=== PATIENT | female | born 1930 | race Caucasian/White ===

== ENCOUNTER 2017-06-06 11:13 | Inpatient (IN) | payer MEDICARE ==
[2017-06-06 11:13] VITALS: BMI 30.2
--- NOTE | 2017-06-06 12:42 | ED PDOC ---
HPI: Trauma/Fall - HPI Time Seen by Provider: 06/06/17 11:34 Chief Complaint (Nursing): Trauma Chief Complaint (Provider): fall History Per: Patient, Family (daughter) History/Exam Limitations: no limitations Additional Complaint(s): Jaelyn Villalta is an 86 year old female, with a previous medical history of hypertension and dementia, who presents to the ED by her daughter for evaluation after sustaining a fall this morning. Patient reports falling down after attempting to get off her chair this morning and denies any pain, headache , loss of consciousness, neck pain, nausea or vomiting. She states to recalling everything that happened. PMD Dr. Jean Past Medical History Reviewed: Historical Data, Nursing Documentation, Vital Signs Vital Signs: Last Vital Signs Temp 98.8 F 06/06/17 11:14 Pulse 70 06/06/17 11:14 Resp 20 06/06/17 11:14 BP 141/65 06/06/17 11:14 Pulse Ox 94 L 06/06/17 11:14 - Medical History PMH: Anemia (post hip surgery), Hypothyroidism Denies: Arthritis, Atrial Fibrillation, Cardia Arrhythmia, CHF, COPD, HTN, Hypercholesterolemia, Mitral Valve Prolapse, Peripheral Edema, Chronic Kidney Disease, Rheumatoid Arthritis - Surgical History Surgical History: No Surg Hx - Family History Family History: States: No Known Family Hx - Home Medications Home Medications: Ambulatory Orders Medication Instructions Recorded Bisoprolol [Zebeta] 5 mg PO DAILY 06/06/17 Donepezil [Aricept] 5 mg PO BID 06/06/17 Levothyroxine [Synthroid] 50 mcg PO DAILY 06/06/17 Multivitamin [Multi-Vitamin Daily] 1 tab PO DAILY 06/06/17 hydroCHLOROthiazide [Hydrodiuril] 25 mg PO DAILY 06/06/17 - Allergies Allergies/Adverse Reactions: Allergies Allergy/AdvReac Type Severity Reaction Status Date / Time No Known Allergies Allergy Verified 11/24/14 18:39 Review of Systems ROS Statement: Except As Marked, All Systems Reviewed And Found Negative Gastrointestinal: Negative for: Nausea, Vomiting Neurological: Negative for: Altered Mental Status, Headache, Dizziness Physical Exam - Reviewed Nursing Documentation Reviewed: Yes Vital Signs Reviewed: Yes - Physical Exam Appears: Positive for: Well, Non-toxic, No Acute Distress Head Exam: Positive for: ATRAUMATIC, NORMAL INSPECTION, NORMOCEPHALIC Skin: Positive for: Normal Color, Warm, Dry Eye Exam: Positive for: EOMI, Normal appearance, PERRL ENT: Positive for: Normal ENT Inspection Neck: Positive for: Normal, Painless ROM, Supple Cardiovascular/Chest: Positive for: Regular Rate, Rhythm, Chest Non Tender Respiratory: Positive for: CNT, Normal Breath Sounds Gastrointestinal/Abdominal: Positive for: Normal Exam, Bowel Sounds, Soft. Negative for: Tenderness Back: Positive for: Normal Inspection, Other (sacral ulcer stage 2) Extremity: Positive for: Normal ROM. Negative for: Tenderness, Deformity, Swelling Neurologic/Psych: Positive for: Alert, Oriented. Negative for: Motor/Sensory Deficits - Laboratory Results Result Diagrams: 06/06/17 12:40 06/06/17 12:40 - ECG ECG: Positive for: Interpreted By Me, Viewed By Me ECG Rhythm: Positive for: Normal QRS, Normal ST Segment, Sinus Rhythm. Negative for: ST/T Changes Rate: 68 O2 Sat by Pulse Oximetry: 94 (RA) Pulse Ox Interpretation: Abnormal Medical Decision Making Medical Decision Making: Initial Impression: fall possible syncope r/o head injury Initial Plan: * x-ray pelvis * ct head w/o contrast * EKG * labs * troponin I * reevaluation 14:08 X-ray pelvis FINDINGS: BONES: Pelvic Bones: Intact pelvic ring. No acute fractures. Hips: Degenerative changes both hips. Satisfactory position and alignment of orthopedic hardware proximal right femur incompletely visualize. JOINTS: Sacroiliac Joints: Unremarkable. Pubic Symphysis: Unremarkable. OTHER FINDINGS: Scoliosis, secondary degenerative change at multiple levels. IMPRESSION: No acute findings related to/accounting for the clinical presentation. 14:17 CT head FINDINGS: HEMORRHAGE: No intracranial hemorrhage. BRAIN: Mild diffuse cerebral atrophy is identified as well as moderate chronic microangiopathy throughout the cerebrum. Posterior fossa contents appear grossly nonfocal with the exception of vascular calcifications in the bilateral distal vertebral artery segments. The brainstem is unremarkable. No suspicious extra-axial collection. No mass effect. Bilateral atherosclerotic changes seen involving the internal carotid arteries at the cavernous segments. VENTRICLES: Unremarkable. No hydrocephalus. CALVARIUM: Unremarkable. PARANASAL SINUSES: Right maxillary sinusitis incidentally noted including a cyst or polyp. MASTOID AIR CELLS: Unremarkable as visualized. No inflammatory changes. OTHER FINDINGS: None. IMPRESSION: Age related neuro degenerative changes are identified without definitive acute intracranial findings by standard CT criteria. Follow-up CT or MRI are available if clinically warranted. . Scribe Attestation: Documented by Zeny Olson, acting as a scribe for Cesar Carrillo MD. Provider Scribe Attestation: All medical record entries made by the Scribe were at my direction and personally dictated by me. I have reviewed the chart and agree that the record accurately reflects my personal performance of the history, physical exam, medical decision making, and the department course for this patient. I have also personally directed, reviewed, and agree with the discharge instructions and disposition Disposition - Clinical Impression Clinical Impression: Acute renal failure, Fall - Patient ED Disposition Is Patient to be Admitted: Yes Discussed With : Rangel Dorman Doctor Will See Patient In The: ED Counseled Patient/Family Regarding: Studies Performed, Diagnosis - Disposition Disposition Time: 15:40 Condition: FAIR - Pt Status Changed To: Hospital Disposition Of: Observation - POA Present On Arrival: Falls Or Trauma, Pressure Ulcer (sacral)
[2017-06-06 12:45] LABS: BASO % 0.3 % (0.0-2.0); EOS % 0.1 % (0.0-4.0); HEMATOCRIT 29.8 % (34.0-47.0); LYMPH # 0.8 K/uL (1.0-4.3); LYMPH % 7.2 % (20.0-40.0); MEAN CELL VOLUME 77.8 fl (81.0-99.0); MEAN CORPUSCULAR HEMOGLOBIN 24.7 pg (27.0-31.0); MEAN CORPUSCULAR HGB CONC 31.7 g/dL (33.0-37.0); MEAN PLATELET VOLUME 6.4 fl (7.2-11.7); MONO # 1.1 K/uL (0.0-0.8); MONO % 9.5 % (0.0-10.0); NEUT # 9.5 K/uL (1.8-7.0); NEUT % 82.9 % (50.0-75.0); PLATELET COUNT 425 K/uL (130-400); RED CELL DISTRIBUTION WIDTH 17.1 % (11.5-14.5); WHITE BLOOD COUNT 11.4 K/uL (4.8-10.8)
[2017-06-06 12:56] LABS: CALCIUM 9.4 mg/dL (8.4-10.2); POTASSIUM 3.1 MMOL/L (3.6-5.0)
[2017-06-06] MEDS ORDERED: Potassium Chloride 20 mEq ER Tab PO ONE ×2 (13:05→13:12)
[2017-06-06] MEDS ORDERED: Sodium Chloride 0.9% 500 ML IV STA (13:05)
[2017-06-06 13:13] LABS: BASOPHIL 1 % (0-2); NEUTROPHIL 79 % (42-75); TOTAL CELLS COUNTED 100
--- NOTE | 2017-06-06 14:10 | RAD ---
PROCEDURE: Radiographs of the pelvis. HISTORY: fall COMPARISON: Preoperative examination 11/19/2014 FINDINGS: BONES: Pelvic Bones: Intact pelvic ring. No acute fractures. Hips: Degenerative changes both hips. Satisfactory position and alignment of orthopedic hardware proximal right femur incompletely visualize. JOINTS: Sacroiliac Joints: Unremarkable. Pubic Symphysis: Unremarkable. OTHER FINDINGS: Scoliosis, secondary degenerative change at multiple levels. IMPRESSION: No acute findings related to/accounting for the clinical presentation.
--- NOTE | 2017-06-06 14:18 | CT ---
PROCEDURE: CT HEAD WITHOUT CONTRAST. HISTORY: syncope COMPARISON: None available. TECHNIQUE: Axial computed tomography images were obtained through the head/brain without intravenous contrast. Radiation dose: Total exam DLP = 1206 mGy-cm. This CT exam was performed using one or more of the following dose reduction techniques: Automated exposure control, adjustment of the mA and/or kV according to patient size, and/or use of iterative reconstruction technique. FINDINGS: HEMORRHAGE: No intracranial hemorrhage. BRAIN: Mild diffuse cerebral atrophy is identified as well as moderate chronic microangiopathy throughout the cerebrum. Posterior fossa contents appear grossly nonfocal with the exception of vascular calcifications in the bilateral distal vertebral artery segments. The brainstem is unremarkable. No suspicious extra-axial collection. No mass effect. Bilateral atherosclerotic changes seen involving the internal carotid arteries at the cavernous segments. VENTRICLES: Unremarkable. No hydrocephalus. CALVARIUM: Unremarkable. PARANASAL SINUSES: Right maxillary sinusitis incidentally noted including a cyst or polyp. MASTOID AIR CELLS: Unremarkable as visualized. No inflammatory changes. OTHER FINDINGS: None. IMPRESSION: Age related neuro degenerative changes are identified without definitive acute intracranial findings by standard CT criteria. Follow-up CT or MRI are available if clinically warranted.
--- NOTE | 2017-06-06 16:34 | CP.PCM.HP ---
History of Present Illness - History of Present Illness History of Present Illness: 86 yo female with history HTN, Dementia and Hypothyroidism brought by family claiming she fell down this morning when her walker slipped. The patient claimed she fell forward to her right side but did not get injured. She denied passing out. Daughter in law felt patient has been deteriorating this past month , physically and mentally. Present on Admission - Present on Admission Any Indicators Present on Admission: No History of DVT/PE: No History of Uncontrolled Diabetes: No Urinary Catheter: No Decubitus Ulcer Present: No Review of Systems - Review of Systems Systems not reviewed;Unavailable: Dementia Past Patient History - Infectious Disease Hx of Infectious Diseases: None - Tetanus Immunizations Tetanus Immunization: Unknown - Past Medical History & Family History Past Medical History?: Yes - Past Social History Smoking Status: Never Smoked Alcohol: None Home Situation {Lives}: Alone - CARDIAC Hx Hypertension: Yes Hx Peripheral Edema: Yes - PULMONARY Hx Chronic Obstructive Pulmonary Disease (COPD): No - NEUROLOGICAL HX Cerebrovascular Accident: No Hx Dementia: Yes - HEENT Hx HEENT Problems: No - RENAL Hx Chronic Kidney Disease: No - ENDOCRINE/METABOLIC Hx Hypothyroidism: Yes - HEMATOLOGICAL/ONCOLOGICAL Hx Anemia: Yes - INTEGUMENTARY Hx Dermatological Problems: No - MUSCULOSKELETAL/RHEUMATOLOGICAL Hx Arthritis: No Hx Fractures: Yes (right hip 3 yrs ago) Hx Rheumatoid Arthritis: No - GASTROINTESTINAL Hx Gastrointestinal Disorders: No - GENITOURINARY/GYNECOLOGICAL Hx Genitourinary Disorders: No - PSYCHIATRIC Hx Substance Use: No - SURGICAL HISTORY Hx Surgeries: Yes Hx Open Reduction Internal Fixation: Yes (11/20/2014 right hip) Other/Comment: h/o fall at home 11/19/2014, 11/20/2014 right hip. intramedullary gamma nail (Dr. Mauro) - ANESTHESIA Hx Anesthesia: Yes Hx Anesthesia Reactions: No Hx Malignant Hyperthermia: No Meds Allergies/Adverse Reactions: Allergies Allergy/AdvReac Type Severity Reaction Status Date / Time No Known Allergies Allergy Verified 11/24/14 18:39 Physical Exam - Constitutional Appears: No Acute Distress - Head Exam Head Exam: ATRAUMATIC - Eye Exam Eye Exam: absent: Scleral icterus - ENT Exam ENT Exam: Mucous Membranes Moist - Neck Exam Neck exam: Negative for: Meningismus - Respiratory Exam Respiratory Exam: Rales (more on the right lower lung field). absent: Wheezes, Respiratory Distress - Cardiovascular Exam Cardiovascular Exam: REGULAR RHYTHM, +S1, +S2 - GI/Abdominal Exam GI & Abdominal Exam: Soft. absent: Tenderness - Rectal Exam Rectal Exam: Deferred - Extremities Exam Extremities exam: Positive for: pedal edema (2+ pedal edema, bilateral). Negative for: calf tenderness - Back Exam Back exam: absent: NORMAL INSPECTION (stage 2 decubitus ulcer), tenderness - Neurological Exam Neurological exam: Alert - Psychiatric Exam Psychiatric exam: Flat Affect - Skin Skin Exam: Dry, Pallor Results - Vital Signs Recent Vital Signs: Last Vital Signs Temp 98.8 F 06/06/17 11:14 Pulse 70 06/06/17 11:14 Resp 20 06/06/17 11:14 BP 141/65 06/06/17 11:14 Pulse Ox 94 L 06/06/17 14:26 - Labs Result Diagrams: 06/06/17 12:40 06/06/17 12:40 Labs: Laboratory Results - last 24 hr 06/06/17 06/06/17 06/06/17 12:40 12:40 14:44 WBC 11.4 H RBC 3.83 Hgb 9.5 L Hct 29.8 L MCV 77.8 L MCH 24.7 L MCHC 31.7 L RDW 17.1 H Plt Count 425 H MPV 6.4 L Neut % (Auto) 82.9 H Lymph % (Auto) 7.2 L [place] % (Auto) 9.5 Eos % (Auto) 0.1 Baso % (Auto) 0.3 Neut # 9.5 H Lymph # 0.8 L [place] # 1.1 H Eos # 0.0 Baso # 0.0 Neutrophils % (Manual) 79 H Lymphocytes % (Manual) 9 L Monocytes % (Manual) 11 H Basophils % (Manual) 1 Platelet Estimate Slightly increased H Hypochromasia (manual) Slight Anisocytosis (manual) Slight Microcytosis (manual) Slight Sodium 137 Potassium 3.1 L Chloride 99 Carbon Dioxide 29 Anion Gap 12 BUN 47 H Creatinine 1.9 H Est GFR ( Amer) 30 Est GFR (Non-Af Amer) 25 Random Glucose 127 H Calcium 9.4 Troponin I < 0.0120 Assessment & Plan (1) Acute renal failure Status: Acute Comment: place on observation in telemetry. acute deterioration of renal function probably secondary to dehydration. continue IV hydration with NSS 80cc /hr. urinalysis. repeat BMP in am (2) HTN (hypertension) Status: Acute Comment: BP stable. continue Zebeta 5mg PO daily (3) Dementia Status: Acute Comment: continue Aricept 5mg PO BID (4) Hypothyroidism Status: Acute Comment: TSH in am. continue Levothyroxine 50mcg PO daily (5) Decubitus ulcer Status: Acute Comment: refer for management to wound nurse (6) Peripheral edema Status: Acute Comment: Lasix 40mg PO daily. ECHO (7) DVT prophylaxis Status: Acute Comment: Heparin 5000 units SC q 12hrs
[2017-06-06 17:31] LABS: RBC URINE 2 /hpf (0-3); URINE BACTERIA RARE (<OCC); URINE BILIRUBIN NEGATIVE (NEGATIVE); URINE BLOOD NEGATIVE (NEGATIVE); URINE COLOR YELLOW (YELLOW); URINE GLUCOSE (UA) NEG (Normal); URINE KETONE NEGATIVE (NEGATIVE); URINE LEUKOCYTE ESTERASE SMALL Leu/uL (Negative); URINE PROTEIN NEGATIVE (NEGATIVE); URINE UROBILINOGEN 0.2-1.0 mg/dL (0.2-1.0)
[2017-06-06 17:40] LABS: WBC URINE 18 /hpf (0-5)
[2017-06-07 05:55] LABS: BASO % 0.3 % (0.0-2.0); EOS % 0.3 % (0.0-4.0); HEMATOCRIT 27.9 % (34.0-47.0); LYMPH # 1.4 K/uL (1.0-4.3); LYMPH % 13.3 % (20.0-40.0); MEAN CELL VOLUME 78.3 fl (81.0-99.0); MEAN CORPUSCULAR HEMOGLOBIN 24.9 pg (27.0-31.0); MEAN CORPUSCULAR HGB CONC 31.8 g/dL (33.0-37.0); MEAN PLATELET VOLUME 6.5 fl (7.2-11.7); MONO % 9.4 % (0.0-10.0); NEUT # 8.3 K/uL (1.8-7.0); NEUT % 76.7 % (50.0-75.0); WHITE BLOOD COUNT 10.8 K/uL (4.8-10.8)
[2017-06-07 06:29] LABS: CALCIUM 8.8 mg/dL (8.4-10.2); POTASSIUM 3.1 MMOL/L (3.6-5.0)
[2017-06-07] MEDS ORDERED: Levothyroxine 50 MCG TAB PO SCH (06:30)
[2017-06-07] MEDS ORDERED: Potassium Chloride 20 mEq ER Tab PO ONE (06:33)
[2017-06-07] MEDS ORDERED: Sodium Chloride 3% for Inhalation 4 ML VIAL.NEB IH PRN (06:34)
[2017-06-07 06:59] LABS: THYROID STIMULATING HORMONE 7.36 mIU/ML (0.46-4.68)
--- NOTE | 2017-06-07 08:10 | CP.PCM.CON ---
History of Present Illness - History of Present Illness History of Present Illness: This patient who is 56 years old admitted because she fell down as described by the history and physical examination and the patient and came to the emergency room. Patient noted to have high BUN/creatinine for which I was called to see this patient . Patient is not giving much history except what noted in the history and physical and the ER note PMH: Anemia (post hip surgery), Hypothyroidism Denies: Arthritis, Atrial Fibrillation, Cardia Arrhythmia, CHF, COPD, HTN, Hypercholesterolemia, Mitral Valve Prolapse, Peripheral Edema, Chronic Kidney Disease, Rheumatoid Arthritis - Surgical History Surgical History: No Surg Hx Review of Systems - Constitutional Constitutional: Weakness. absent: Chills - Cardiovascular Cardiovascular: absent: Chest Pain, Dyspnea, Edema - Respiratory Respiratory: absent: Cough, Dyspnea, Hemoptysis, Wheezing, Chest Congestion - Gastrointestinal Gastrointestinal: absent: Abdominal Pain, Belching, Coffee Ground Emesis, Nausea , Vomiting - Genitourinary Genitourinary: Nocturia - Reproductive: Female Reproductive:Female: As Per HPI - Musculoskeletal Musculoskeletal: Muscle Weakness - Neurological Neurological: Abnormal Gait - Psychiatric Psychiatric: As Per HPI - Hematologic/Lymphatic Hematologic: As Per HPI Past Patient History - Infectious Disease Hx of Infectious Diseases: None - Tetanus Immunizations Tetanus Immunization: Unknown - Past Medical History & Family History Past Medical History?: Yes - Past Social History Smoking Status: Never Smoked - CARDIAC Hx Atrial Fibrillation: No Hx Cardia Arrhythmia: No Hx Congestive Heart Failure: No Hx Hypercholesterolemia: No Hx Hypertension: No Hx Mitral Valve Prolapse: No Hx Peripheral Edema: No - PULMONARY Hx Chronic Obstructive Pulmonary Disease (COPD): No - NEUROLOGICAL HX Cerebrovascular Accident: No Hx Dementia: Yes - HEENT Hx HEENT Problems: No - RENAL Hx Chronic Kidney Disease: No - ENDOCRINE/METABOLIC Hx Hypothyroidism: Yes - HEMATOLOGICAL/ONCOLOGICAL Hx Anemia: Yes (post hip surgery) - INTEGUMENTARY Hx Dermatological Problems: No - MUSCULOSKELETAL/RHEUMATOLOGICAL Hx Falls: Yes - GASTROINTESTINAL Hx Gastrointestinal Disorders: No - GENITOURINARY/GYNECOLOGICAL Hx Genitourinary Disorders: No - PSYCHIATRIC Hx Substance Use: No - SURGICAL HISTORY Hx Surgeries: Yes Hx Open Reduction Internal Fixation: Yes (11/20/2014 right hip) Other/Comment: h/o fall at home 11/19/2014, 11/20/2014 right hip. intramedullary gamma nail (Dr. Mauro) - ANESTHESIA Hx Anesthesia: Yes Hx Anesthesia Reactions: No Hx Malignant Hyperthermia: No Meds Allergies/Adverse Reactions: Allergies Allergy/AdvReac Type Severity Reaction Status Date / Time No Known Allergies Allergy Verified 11/24/14 18:39 - Medications Medications: Current Medications Bisoprolol Fumarate (Zebeta) 5 mg PO DAILY [facility] Donepezil HCl (Aricept) 5 mg PO BID [facility] Last Admin: 06/06/17 18:49 Dose: 5 mg Furosemide (Lasix) 20 mg PO DAILY [facility] Heparin Sodium (Porcine) (Heparin) 5,000 units SC Q12 [facility] PRN Reason: Protocol Last Admin: 06/06/17 22:08 Dose: 5,000 units Levothyroxine Sodium (Synthroid) 50 mcg PO DAILY@0630 [facility] Last Admin: 06/07/17 06:15 Dose: 50 mcg Multivitamins/Minerals (Therapeutic-M Tab) 1 tab PO DAILY [facility] Pantoprazole Sodium (Protonix Ec Tab) 40 mg PO DAILY [facility] Physical Exam - Constitutional Appears: No Acute Distress - ENT Exam ENT Exam: Mucous Membranes Dry - Respiratory Exam Respiratory Exam: absent: Chest Wall Tenderness, Rales, NORMAL BREATHING PATTERN - Cardiovascular Exam Cardiovascular Exam: REGULAR RHYTHM. absent: Rubs - GI/Abdominal Exam GI & Abdominal Exam: Normal Bowel Sounds - Extremities Exam Extremities exam: Negative for: calf tenderness - Back Exam Back exam: absent: CVA tenderness (L), CVA tenderness (R) Results - Vital Signs Recent Vital Signs: Last Vital Signs Temp 98.6 F 06/07/17 04:55 Pulse 72 06/07/17 04:55 Resp 18 06/07/17 04:55 BP 127/67 06/07/17 04:55 Pulse Ox 93 L 06/07/17 04:55 - Labs Result Diagrams: 06/07/17 05:30 06/07/17 05:30 Labs: Laboratory Results - last 24 hr 06/06/17 06/06/17 06/06/17 12:40 12:40 14:44 WBC 11.4 H RBC 3.83 Hgb 9.5 L Hct 29.8 L MCV 77.8 L MCH 24.7 L MCHC 31.7 L RDW 17.1 H Plt Count 425 H MPV 6.4 L Neut % (Auto) 82.9 H Lymph % (Auto) 7.2 L [place] % (Auto) 9.5 Eos % (Auto) 0.1 Baso % (Auto) 0.3 Neut # 9.5 H Lymph # 0.8 L [place] # 1.1 H Eos # 0.0 Baso # 0.0 Neutrophils % (Manual) 79 H Lymphocytes % (Manual) 9 L Monocytes % (Manual) 11 H Basophils % (Manual) 1 Platelet Estimate Slightly increased H Hypochromasia (manual) Slight Anisocytosis (manual) Slight Microcytosis (manual) Slight Sodium 137 Potassium 3.1 L Chloride 99 Carbon Dioxide 29 Anion Gap 12 BUN 47 H Creatinine 1.9 H Est GFR ( Amer) 30 Est GFR (Non-Af Amer) 25 Random Glucose 127 H Calcium 9.4 Troponin I < 0.0120 NT-Pro-B Natriuret Pep Triglycerides Cholesterol LDL Cholesterol Direct HDL Cholesterol TSH 3rd Generation Urine Color Urine Clarity Urine pH Ur Specific [place] Urine Protein Urine Glucose (UA) Urine Ketones Urine Blood Urine Nitrate Urine Bilirubin Urine Urobilinogen Ur Leukocyte Esterase Urine RBC (Auto) Urine Microscopic WBC Ur Squamous Epith Cells Urine Bacteria 06/06/17 06/06/17 06/07/17 17:00 17:00 05:30 WBC 10.8 RBC 3.56 L Hgb 8.9 L Hct 27.9 L MCV 78.3 L MCH 24.9 L MCHC 31.8 L RDW 17.0 H Plt Count 386 MPV 6.5 L Neut % (Auto) 76.7 H Lymph % (Auto) 13.3 L [place] % (Auto) 9.4 Eos % (Auto) 0.3 Baso % (Auto) 0.3 Neut # 8.3 H Lymph # 1.4 [place] # 1.0 H Eos # 0.0 Baso # 0.0 Neutrophils % (Manual) Lymphocytes % (Manual) Monocytes % (Manual) Basophils % (Manual) Platelet Estimate Hypochromasia (manual) Anisocytosis (manual) Microcytosis (manual) Sodium Potassium Chloride Carbon Dioxide Anion Gap BUN Creatinine Est GFR ( Amer) Est GFR (Non-Af Amer) Random Glucose Calcium Troponin I NT-Pro-B Natriuret Pep 2050 H Triglycerides Cholesterol LDL Cholesterol Direct HDL Cholesterol TSH 3rd Generation Urine Color Yellow Urine Clarity Cloudy Urine pH 5.0 Ur Specific [place] 1.015 Urine Protein Negative Urine Glucose (UA) Neg Urine Ketones Negative Urine Blood Negative Urine Nitrate Negative Urine Bilirubin Negative Urine Urobilinogen 0.2-1.0 Ur Leukocyte Esterase Small Urine RBC (Auto) 2 Urine Microscopic WBC 18 H Ur Squamous Epith Cells 1 Urine Bacteria Rare 06/07/17 05:30 WBC RBC Hgb Hct MCV MCH MCHC RDW Plt Count MPV Neut % (Auto) Lymph % (Auto) [place] % (Auto) Eos % (Auto) Baso % (Auto) Neut # Lymph # [place] # Eos # Baso # Neutrophils % (Manual) Lymphocytes % (Manual) Monocytes % (Manual) Basophils % (Manual) Platelet Estimate Hypochromasia (manual) Anisocytosis (manual) Microcytosis (manual) Sodium 138 Potassium 3.1 L Chloride 102 Carbon Dioxide 28 Anion Gap 11 BUN 41 H Creatinine 1.7 H Est GFR ( Amer) 34 Est GFR (Non-Af Amer) 28 Random Glucose 107 H Calcium 8.8 Troponin I NT-Pro-B Natriuret Pep Triglycerides 166 H Cholesterol 95 LDL Cholesterol Direct 40 HDL Cholesterol 20 L TSH 3rd Generation 7.36 H Urine Color Urine Clarity Urine pH Ur Specific [place] Urine Protein Urine Glucose (UA) Urine Ketones Urine Blood Urine Nitrate Urine Bilirubin Urine Urobilinogen Ur Leukocyte Esterase Urine RBC (Auto) Urine Microscopic WBC Ur Squamous Epith Cells Urine Bacteria Assessment & Plan (1) Acute renal injury due to hypovolemia Assessment and Plan: Patient appeared to have acute kidney injury perhaps from dehydration. Continue gently 0.9 normal saline Hold Lasix temporary for couple days And continue to monitor kidney function Spot urine for sodium osmolality and creatinine Status: Acute
[2017-06-07] MEDS: Multivitamin With Minerals Tab PO SCH (09:15)
[2017-06-07] MEDS: Pantoprazole 40 mg EC Tab PO SCH (09:15)
--- NOTE | 2017-06-07 10:14 | RAD ---
HISTORY: fall COMPARISON: Comparison made with chest radiograph 11/19/2014 FINDINGS: LUNGS: No active pulmonary disease. PLEURA: Mild biapical pleural thickening. No significant pleural effusion identified, no pneumothorax apparent. CARDIOVASCULAR: Normal. OSSEOUS STRUCTURES: Degenerative changes both shoulder girdles. . Mild multilevel degenerative spondylosis of the thoracic spine. There is a dextroscoliosis levoscoliosis centered at the thoracolumbar junction. Upper VISUALIZED UPPER ABDOMEN: Normal. OTHER FINDINGS: None. IMPRESSION: No acute infiltrates. Mild biapical pleural thickening.
--- NOTE | 2017-06-07 12:14 | CARD ---
APPROVED REPORT EXAM: Two-dimensional and M-mode echocardiogram with Doppler and color Doppler. Other Information Quality : AverageRhythm : NSR Technically limited study due to poor apical window INDICATION Congestive Heart Failure 2D DIMENSIONS Left Atrium (2D)3.74 (1.6-4.0cm)IVSd1.09 (0.7-1.1cm) Aortic Root (2D)2.62 (2.0-3.7cm)LVDd4.45 (3.9-5.9cm) LVOT Diameter1.51 (1.8-2.4cm)PWd0.69 (0.7-1.1cm) IVSs1.95 (0.8-1.2cm)LVDs2.68 (2.5-4.0cm) FS (%) 39.9 %PWs1.04 (0.8-1.2cm) M-Mode DIMENSIONS Left Atrium (MM)3.94 (2.5-4.0cm)IVSd0.62 (0.7-1.1cm) Aortic Root2.91 (2.2-3.7cm)LVDd4.76 (4.0-5.6cm) Aortic Cusp Exc.1.85 (1.5-2.0cm)PWd1.09 (0.7-1.1cm) IVSs1.00 cmFS (%) 22 % LVDs3.74 (2.0-3.8cm)PWs0.76 cm Aortic Valve AI P 1/2 [id number] Mitral Valve MV E Zqquqdsw203.1cm/sMV DECEL [id number] A Hyweoqwh906.6cm/s MV GDT60dyM/A ratio0.8MVA (PHT)2.44cm2 TDI Medial E' Peak V8.15cm/sE/Lateral E'0.0E/Medial E'12.9 Pulmonary Valve PV Peak Zbeocpbq581.4cm/s Tricuspid Valve TR Peak [id number]/sRAP [id number] Peak Gr.25mmHg [id number] LEFT VENTRICLE The left ventricle is normal size. There is normal left ventricular wall thickness. The left ventricular function is normal. The left ventricular ejection fraction is within the normal range. The Ejection Fraction is 50-55%. There is normal LV segmental wall motion. The left ventricular diastolic function is normal. No left ventricle thrombus noted on this study. There is no mass noted in the left ventricle. RIGHT VENTRICLE The right ventricle is normal size. There is normal right ventricular wall thickness. The right ventricular systolic function is normal. ATRIA The left atrium size is normal. The right atrium size is normal. The interatrial septum is intact with no evidence for an atrial septal defect. AORTIC VALVE The aortic valve is normal in structure and function. There is mild aortic regurgitation. There is no aortic valvular stenosis. There is no aortic valvular vegetation. MITRAL VALVE The mitral valve is normal in structure and function. There is no evidence of mitral valve prolapse. There is no mitral valve stenosis. There is no mitral valve regurgitation noted. TRICUSPID VALVE The tricuspid valve is normal in structure and function. There is no tricuspid valve regurgitation noted. There is no tricuspid valve prolapse or vegetation. There is no tricuspid valve stenosis. PULMONIC VALVE The pulmonary valve is normal in structure and function. There is no pulmonic valvular regurgitation. There is no pulmonic valvular stenosis. GREAT VESSELS The aortic root is normal in size. The IVC is normal in size and collapses >50% with inspiration. PERICARDIAL EFFUSION The pericardium appears normal. There is no pleural effusion. <Conclusion> The left ventricle is normal size. The left ventricular function is normal. The left ventricular ejection fraction is within the normal range. The Ejection Fraction is 50-55%. There is mild aortic regurgitation.
--- NOTE | 2017-06-07 12:18 | CARD ---
APPROVED REPORT EKG Measurement Heart [id number] VT 180P49 [id number] <Conclusion> Normal sinus rhythm Minimal voltage criteria for LVH, may be normal variant Nonspecific ST abnormality Abnormal ECG
[2017-06-07] MEDS ORDERED: Potassium Chloride 20 mEq/15 ml LIQ UD PO ONE (12:45)
[2017-06-07] MEDS: Sodium Chloride 0.9% 1,000 ML IV SCH (13:35)
[2017-06-07 15:53] LABS: IRON 23 ug/dL (37-170)
--- NOTE | 2017-06-07 18:06 | CP.PCM.PN ---
Subjective - Date & Time of Evaluation Date of Evaluation: 06/07/19 Time of Evaluation: 13:30 - Subjective Subjective: Patient seen and examined bedside.Elderly female lying in bed in NAD. Denies any pain or discomfort. Appears weak and tired. Hemodynamically stable, afebrile No acute issues overnight Incontinent of urine and bowel movement Objective - Vital Signs/Intake and Output Vital Signs (last 24 hours): Temp Pulse Resp BP Pulse Ox 98.6 F 59 L 20 113/65 92 L 06/07/17 15:58 06/07/17 15:58 06/07/17 15:58 06/07/17 15:58 06/07/17 15:58 - Medications Medications: Current Medications Bisoprolol Fumarate (Zebeta) 5 mg PO DAILY [facility] Last Admin: 06/07/17 09:15 Dose: 5 mg Donepezil HCl (Aricept) 5 mg PO BID [facility] Last Admin: 06/07/17 16:44 Dose: 5 mg Heparin Sodium (Porcine) (Heparin) 5,000 units SC Q12 [facility] PRN Reason: Protocol Last Admin: 06/07/17 09:14 Dose: 5,000 units Sodium Chloride (Sodium Chloride 0.9%) 1,000 mls @ 80 mls/hr IV .[id number] [facility] Stop: 06/08/17 12:58 Last Admin: 06/07/17 13:35 Dose: 80 mls/hr Iron Sucrose 100 mg/ Sodium (Chloride) 105 mls @ 105 mls/hr IVPB DAILY [facility] Levothyroxine Sodium (Synthroid) 88 mcg PO DAILY@0630 [facility] Multivitamins/Minerals (Therapeutic-M Tab) 1 tab PO DAILY [facility] Last Admin: 06/07/17 09:15 Dose: 1 tab Pantoprazole Sodium (Protonix Ec Tab) 40 mg PO DAILY [facility] Last Admin: 06/07/17 09:15 Dose: 40 mg - Labs Labs: 06/07/17 05:30 06/07/17 05:30 - Constitutional Appears: Non-toxic, No Acute Distress, Other (elderly , weak, pale) - Head Exam Head Exam: ATRAUMATIC, NORMAL INSPECTION, NORMOCEPHALIC - Eye Exam Eye Exam: EOMI, Normal appearance, PERRL Pupil Exam: NORMAL ACCOMODATION - ENT Exam ENT Exam: Mucous Membranes Moist, Normal Exam - Neck Exam Neck Exam: Normal Inspection, Tenderness - Respiratory Exam Respiratory Exam: Clear to Ausculation Bilateral, Rales (dry rales bibasilar ), NORMAL BREATHING PATTERN. absent: Accessory Muscle Use, Prolonged Expiratory Phase, Rhonchi, Wheezes, Respiratory Distress - Cardiovascular Exam Cardiovascular Exam: REGULAR RHYTHM, RRR, +S1, +S2. absent: JVD - GI/Abdominal Exam GI & Abdominal Exam: Soft, Normal Bowel Sounds. absent: Distended, Guarding, Tenderness, Rebound - Rectal Exam Rectal Exam: Deferred - Extremities Exam Extremities Exam: Full ROM, Normal Capillary Refill, Normal Inspection. absent : Calf Tenderness, Pedal Edema - Back Exam Back Exam: NORMAL INSPECTION - Neurological Exam Neurological Exam: Alert, Awake - Psychiatric Exam Psychiatric exam: Flat Affect - Skin Skin Exam: Dry, Pallor, Warm Additional comments: sacral decubitus ulcer Assessment and Plan - Assessment and Plan (Free Text) Assessment: 86 yo female with history HTN, Dementia and Hypothyroidism brought by family claiming she fell down this morning when her walker slipped. The patient claimed she fell forward to her right side but did not get injured. She denied passing out. Daughter in law felt patient has been deteriorating this past month , physically and mentally.She appears to be elderly , weak, pale and with poor PO intake.Her blood work up showed BUN/Cr 41/1.7 TSH 7.36 BNP 2049 CXR, pelvis Xary and CT head showed no acute pathology Patient admitted for acute renal failure and generalized weakness 1. Acute renal failure Acute Most likely volume depleted Started on NS 2 80 cc/hr Nephrology consult appreciated . Will follow up urine lytes, spot urine creatinine, renal US Repeat BMP in AM 2. Anemia Most likely chronic anemia patient has very poor PO intake anemia work up sent and showed depleted iron stores Will start Venofer IV Check occult blood repeat CBC in AM 3. Hypothyroidism uncontrolled TSH 7.36 increase synthroid from 50 to 88 mcg po daily 4. Urinary incontinence UA cloudy with zenaida bacteria ,WBC 11 ,small LE send urine cx ( clean catch ) sample to rule out UTI 5. Generalized weakness with fall Pelvis xray showed no acute fracture or dislocation patient walks with a walker at home since her hip surgery last year PT / OT josh Lives alone and has home care for few hours a day josh 6. Dementia on aricept 7.Decubitus ulcer wound care consult patient is incontinent or both bowel and urine 8. Peripheral edema-- most likley dependent resolved ECHO showed normal Ef 50-55 5 with normal LV function 9 DVT prophylaxis Acute Heparin 5000 units SC q 12hrs
[2017-06-07 21:10] LABS: FOLATE > 20.0 ng/mL
[2017-06-08 06:10] LABS: HEMATOCRIT 29.4 % (34.0-47.0); MEAN CELL VOLUME 79.9 fl (81.0-99.0); MEAN CORPUSCULAR HEMOGLOBIN 24.3 pg (27.0-31.0); MEAN CORPUSCULAR HGB CONC 30.4 g/dL (33.0-37.0); RED CELL DISTRIBUTION WIDTH 17.6 % (11.5-14.5); WHITE BLOOD COUNT 11.5 K/uL (4.8-10.8)
[2017-06-08 06:19] LABS: CALCIUM 8.9 mg/dL (8.4-10.2); POTASSIUM 3.8 MMOL/L (3.6-5.0)
[2017-06-08] MEDS ORDERED: Levothyroxine 88 MCG TAB PO SCH (06:30)
[2017-06-08] MEDS: Sodium Chloride 0.9% 1,000 ML IV SCH (06:41)
[2017-06-08] MEDS: Pantoprazole 40 mg EC Tab PO SCH (08:52)
[2017-06-08] MEDS: Multivitamin With Minerals Tab PO SCH (08:53)
--- NOTE | 2017-06-08 09:53 | CP.PCM.PN ---
Subjective - Date & Time of Evaluation Date of Evaluation: 06/08/17 Time of Evaluation: 09:51 - Subjective Subjective: Patient and bed she appears to be comfortable Shortness of breath no difficulty breathing Vital signs stable Objective - Vital Signs/Intake and Output Vital Signs (last 24 hours): Temp Pulse Resp BP Pulse Ox 97.6 F 77 20 126/67 95 06/08/17 08:00 06/08/17 08:00 06/08/17 08:00 06/08/17 08:00 06/08/17 08:00 Intake and Output: 06/08/17 06/08/17 06:59 18:59 Intake Total 1840 Balance 1840 - Medications Medications: Current Medications Bisoprolol Fumarate (Zebeta) 5 mg PO DAILY [facility] Last Admin: 06/08/17 08:53 Dose: 5 mg Donepezil HCl (Aricept) 5 mg PO BID [facility] Last Admin: 06/08/17 08:53 Dose: 5 mg Heparin Sodium (Porcine) (Heparin) 5,000 units SC Q12 [facility] PRN Reason: Protocol Last Admin: 06/07/17 22:15 Dose: Not Given Sodium Chloride (Sodium Chloride 0.9%) 1,000 mls @ 80 mls/hr IV .[id number] [facility] Stop: 06/08/17 12:58 Last Admin: 06/08/17 06:41 Dose: 80 mls/hr Iron Sucrose 100 mg/ Sodium (Chloride) 105 mls @ 105 mls/hr IVPB DAILY [facility] Levothyroxine Sodium (Synthroid) 88 mcg PO DAILY@0630 [facility] Last Admin: 06/08/17 06:41 Dose: 88 mcg Multivitamins/Minerals (Therapeutic-M Tab) 1 tab PO DAILY [facility] Last Admin: 06/08/17 08:53 Dose: 1 tab Pantoprazole Sodium (Protonix Ec Tab) 40 mg PO DAILY [facility] Last Admin: 06/08/17 08:52 Dose: 40 mg - Labs Labs: 06/08/17 05:25 06/08/17 05:25 - Constitutional Appears: No Acute Distress - ENT Exam ENT Exam: Mucous Membranes Moist - Respiratory Exam Respiratory Exam: NORMAL BREATHING PATTERN. absent: Chest Wall Tenderness - Cardiovascular Exam Cardiovascular Exam: REGULAR RHYTHM. absent: Rubs - Extremities Exam Extremities Exam: absent: Calf Tenderness - Back Exam Back Exam: absent: CVA tenderness (L), CVA tenderness (R) - Neurological Exam Neurological Exam: Alert Assessment and Plan (1) Acute renal injury due to hypovolemia Assessment & Plan: Serum creatinine coming down slowly Acute kidney injury recovering ProBNP going up So no more IV fluid needed Patient need to be restarted perhaps small doses of diuretics, and kidney monitoring kidney function Status: Acute
--- NOTE | 2017-06-08 12:03 | US ---
PROCEDURE: Ultrasound of the Kidneys HISTORY: HECTOR COMPARISON: None available. TECHNIQUE: Sonogram of the kidneys. FINDINGS: RIGHT KIDNEY: Measures: 9.6 cm. Normal in size, contour and echogenicity. No stone, solid mass lesion or hydronephrosis visualized. LEFT KIDNEY: Measures: 9.7 cm. Normal in size, contour and echogenicity. No stone or cyst. There is mild hydronephrosis and distention of the renal pelvis OTHER FINDINGS: Incidental note is made of cholelithiasis and fibroid uterus. IMPRESSION: 1. No nephrolithiasis. Mild left hydronephrosis and distention of the left renal pelvis. 2. Cholelithiasis. 3. Fibroid uterus.
[2017-06-08 12:39] LABS: MEAN CELL VOLUME 80.1 fl (81.0-99.0); MEAN CORPUSCULAR HEMOGLOBIN 25.1 pg (27.0-31.0); MEAN CORPUSCULAR HGB CONC 31.3 g/dL (33.0-37.0); RED CELL DISTRIBUTION WIDTH 17.4 % (11.5-14.5)
--- NOTE | 2017-06-08 19:25 | CP.PCM.PN ---
Subjective - Date & Time of Evaluation Date of Evaluation: 06/08/17 Time of Evaluation: 17:00 - Subjective Subjective: Pt seen and examined. No complaint. Objective - Vital Signs/Intake and Output Vital Signs (last 24 hours): Temp Pulse Resp BP Pulse Ox 97.4 F L 66 20 130/67 97 06/08/17 16:50 06/08/17 16:50 06/08/17 16:50 06/08/17 16:50 06/08/17 16:50 Intake and Output: 06/08/17 06/09/17 18:59 06:59 Intake Total 1240 Balance 1240 - Medications Medications: Current Medications Bisoprolol Fumarate (Zebeta) 5 mg PO DAILY [facility] Last Admin: 06/08/17 08:53 Dose: 5 mg Donepezil HCl (Aricept) 5 mg PO HS [facility] Furosemide (Lasix) 20 mg PO DAILY [facility] Last Admin: 06/08/17 14:12 Dose: 20 mg Iron Sucrose 100 mg/ Sodium (Chloride) 105 mls @ 105 mls/hr IVPB DAILY [facility] Last Admin: 06/08/17 11:59 Dose: 105 mls/hr Levothyroxine Sodium (Synthroid) 88 mcg PO DAILY@0630 [facility] Last Admin: 06/08/17 06:41 Dose: 88 mcg Multivitamins/Minerals (Therapeutic-M Tab) 1 tab PO DAILY [facility] Last Admin: 06/08/17 08:53 Dose: 1 tab Pantoprazole Sodium (Protonix Ec Tab) 40 mg PO DAILY [facility] Last Admin: 06/08/17 08:52 Dose: 40 mg - Labs Labs: 06/08/17 12:25 06/08/17 05:25 - Constitutional Appears: No Acute Distress - Head Exam Head Exam: ATRAUMATIC - Eye Exam Eye Exam: absent: Scleral icterus - ENT Exam ENT Exam: Mucous Membranes Moist - Neck Exam Neck Exam: absent: Meningismus - Respiratory Exam Respiratory Exam: absent: Rhonchi, Wheezes, Respiratory Distress - Cardiovascular Exam Cardiovascular Exam: REGULAR RHYTHM, +S1, +S2 - GI/Abdominal Exam GI & Abdominal Exam: Soft. absent: Tenderness - Rectal Exam Rectal Exam: Deferred - Extremities Exam Extremities Exam: Pedal Edema - Neurological Exam Neurological Exam: Alert - Psychiatric Exam Psychiatric exam: Flat Affect - Skin Skin Exam: Dry Assessment and Plan (1) Acute renal failure Status: Acute (2) HTN (hypertension) Status: Acute (3) Dementia Status: Acute (4) Hypothyroidism Status: Acute (5) Decubitus ulcer Status: Acute (6) Peripheral edema Status: Acute (7) DVT prophylaxis Status: Acute - Assessment and Plan (Free Text) Assessment: 86 yo female with history HTN, Dementia and Hypothyroidism brought by family claiming she fell down this morning when her walker slipped. The patient claimed she fell forward to her right side but did not get injured. She denied passing out. Daughter in law felt patient has been deteriorating this past month , physically and mentally.She appears to be elderly , weak, pale and with poor PO intake.Her blood work up showed BUN/Cr 41/1.7 TSH 7.36 BNP 2049 CXR, pelvis Xary and CT head showed no acute pathology Patient admitted for acute renal failure and generalized weakness 1. Acute renal failure slightly improved with hydration 2. Anemia Most likely chronic anemia patient has very poor PO intake anemia work up sent and showed depleted iron stores on Venofer IV Check occult blood (+) GI consult with Dr Montejo 3. Hypothyroidism uncontrolled TSH 7.36 increase synthroid from 50 to 88 mcg po daily 4. Urinary incontinence UA cloudy with zenaida bacteria ,WBC 11 ,small LE send urine cx ( clean catch ) sample to rule out UTI Rocephin 1gm IV daily 5. Generalized weakness with fall Pelvis xray showed no acute fracture or dislocation patient walks with a walker at home since her hip surgery last year PT / OT josh Lives alone and has home care for few hours a day for possible transfer to [facility] 6. Dementia on aricept 7.Decubitus ulcer wound care consult patient is incontinent or both bowel and urine 8. Peripheral edema-- most likley dependent resolved ECHO showed normal Ef 50-55 5 with normal LV function elevated ProBNP probably secondary to renal failure 9 DVT prophylaxis anticoagulant DC because of + occult blood on stool venodyne boots while in bed
[2017-06-09 04:55] VITALS: RESP 18
--- NOTE | 2017-06-09 08:23 | CP.PCM.PN ---
Subjective - Date & Time of Evaluation Date of Evaluation: 06/09/17 Time of Evaluation: 08:19 - Subjective Subjective: Patient and bed No new events reported No chest pain Objective - Vital Signs/Intake and Output Vital Signs (last 24 hours): Temp Pulse Resp BP Pulse Ox 97.5 F L 69 18 117/64 95 06/09/17 08:00 06/09/17 08:00 06/09/17 08:00 06/09/17 08:00 06/09/17 08:00 - Medications Medications: Current Medications Bisoprolol Fumarate (Zebeta) 5 mg PO DAILY [facility] Last Admin: 06/08/17 08:53 Dose: 5 mg Donepezil HCl (Aricept) 5 mg PO HS [facility] Last Admin: 06/08/17 22:20 Dose: 5 mg Furosemide (Lasix) 20 mg PO DAILY [facility] Last Admin: 06/08/17 14:12 Dose: 20 mg Iron Sucrose 100 mg/ Sodium (Chloride) 105 mls @ 105 mls/hr IVPB DAILY [facility] Last Admin: 06/08/17 11:59 Dose: 105 mls/hr Ceftriaxone Sodium 1 gm/ (Sodium Chloride) 100 mls @ 100 mls/hr IVPB DAILY [facility] Levothyroxine Sodium (Synthroid) 88 mcg PO DAILY@0630 [facility] Last Admin: 06/08/17 06:41 Dose: 88 mcg Multivitamins/Minerals (Therapeutic-M Tab) 1 tab PO DAILY [facility] Last Admin: 06/08/17 08:53 Dose: 1 tab Pantoprazole Sodium (Protonix Ec Tab) 40 mg PO DAILY [facility] Last Admin: 06/08/17 08:52 Dose: 40 mg - Labs Labs: 06/08/17 12:25 06/08/17 05:25 - Constitutional Appears: No Acute Distress - ENT Exam ENT Exam: Mucous Membranes Moist - Respiratory Exam Respiratory Exam: Clear to Ausculation Bilateral, NORMAL BREATHING PATTERN - Cardiovascular Exam Cardiovascular Exam: REGULAR RHYTHM. absent: JVD, Rubs - GI/Abdominal Exam GI & Abdominal Exam: Normal Bowel Sounds - Extremities Exam Extremities Exam: absent: Calf Tenderness - Back Exam Back Exam: absent: CVA tenderness (L), CVA tenderness (R) - Neurological Exam Neurological Exam: Altered Assessment and Plan (1) Acute renal injury due to hypovolemia Assessment & Plan: Serum creatinine coming down slowly from 1.9 to 1.5 recovery of acute kidney injury. Continue to monitor kidney function Patient does not need anymore hydration because of the leg edema and rising pro- Bnp. 2. Anemia Most likely chronic anemia patient has very poor PO intake anemia work up sent and showed depleted iron stores on Venofer IV Check occult blood (+) GI consult with Dr Montejo 3. Hypothyroidism uncontrolled TSH 7.36 increase synthroid from 50 to 88 mcg po daily 4. Urinary incontinence UA cloudy with zenaida bacteria ,WBC 11 ,small LE send urine cx ( clean catch ) sample to rule out UTI Rocephin 1gm IV daily 5. Generalized weakness with fall Pelvis xray showed no acute fracture or dislocation patient walks with a walker at home since her hip surgery last year PT / OT [email or web address] Lives alone and has home care for few hours a day for possible transfer to [facility] 6. Dementia on aricept Status: Acute
--- NOTE | 2017-06-09 09:19 | CP.PCM.CON ---
<Farhad Anand - Last Filed: 06/09/17 10:42> History of Present Illness - History of Present Illness History of Present Illness: PGY4 Initial GI Note Jaelyn Villalta is a 86F w/ a hx of anemia, hypothyroidism, dementia, and anemia of chronic disease who presented for a fall. Pt was incidentally found to have a hgb of 9. Pt is only oriented x 1 and cannot give much information. All information is obtained via EMR and nursing staff. As per nursing, there have been no reports of melena, hematachezia, coffee-ground emesis, nausea, or vomiting. Pt is not on chronic NSAIDs. Denies has no complaints. Tolerating diet without difficulty as per staff. As per RN, pt's family does not want aggressive care for the pt, as they are aware of her current condition. PMH: Anemia, Hypothyroidism, dementia Surgical History:hip surgery? Enodscopy hx: unknown Family hx: unknown Social hx: denies smoking, etoh, or illicit drugs ROS: could not conduct due to mental status Past Patient History - Infectious Disease Hx of Infectious Diseases: None - Tetanus Immunizations Tetanus Immunization: Unknown - Past Medical History & Family History Past Medical History?: Yes - Past Social History Smoking Status: Never Smoked - CARDIAC Hx Cardiac Disorders: No Hx Congestive Heart Failure: No Hx Hypercholesterolemia: No Hx Hypertension: No - PULMONARY Hx Chronic Obstructive Pulmonary Disease (COPD): No - NEUROLOGICAL HX Cerebrovascular Accident: No - HEENT Hx HEENT Problems: No - RENAL Hx Renal Failure: No - ENDOCRINE/METABOLIC Hx Diabetes Mellitus Type 1: No Hx Diabetes Mellitus Type 2: No Hx Hypothyroidism: Yes - HEMATOLOGICAL/ONCOLOGICAL Hx Anemia: Yes (post hip surgery) - INTEGUMENTARY Hx Dermatological Problems: No - MUSCULOSKELETAL/RHEUMATOLOGICAL Hx Arthritis: No Hx Rheumatoid Arthritis: No - GASTROINTESTINAL Hx Gastrointestinal Disorders: No - GENITOURINARY/GYNECOLOGICAL Hx Genitourinary Disorders: No - PSYCHIATRIC Hx Substance Use: No - SURGICAL HISTORY Hx Surgeries: Yes Hx Open Reduction Internal Fixation: Yes (11/20/2014 right hip) Other/Comment: h/o fall at home 11/19/2014, 11/20/2014 right hip. intramedullary gamma nail (Dr. Mauro) - ANESTHESIA Hx Anesthesia: Yes Hx Anesthesia Reactions: No Hx Malignant Hyperthermia: No Meds Home Medications: Home Medication List Medication Instructions Recorded Confirmed Type Ferrous Sulfate 325 mg PO BID #60 tablet 06/08/17 Rx Levothyroxine [Synthroid] 88 mcg PO DAILY@0630 tab 06/08/17 Rx Multimineral/Multivitamin 1 tab PO DAILY tab 06/08/17 Rx [Therapeutic-M Tab] Pantoprazole [Protonix EC Tab] 40 mg PO DAILY ect 06/08/17 Rx Furosemide [Lasix] 20 mg PO DAILY 30 Days #0 tab 06/09/17 Rx Allergies/Adverse Reactions: Allergies Allergy/AdvReac Type Severity Reaction Status Date / Time No Known Allergies Allergy Verified 11/24/14 18:39 - Medications Medications: Current Medications Bisoprolol Fumarate (Zebeta) 5 mg PO DAILY [facility] Last Admin: 06/08/17 08:53 Dose: 5 mg Donepezil HCl (Aricept) 5 mg PO HS [facility] Last Admin: 06/08/17 22:20 Dose: 5 mg Furosemide (Lasix) 20 mg PO DAILY [facility] Last Admin: 06/08/17 14:12 Dose: 20 mg Iron Sucrose 100 mg/ Sodium (Chloride) 105 mls @ 105 mls/hr IVPB DAILY [facility] Last Admin: 06/08/17 11:59 Dose: 105 mls/hr Ceftriaxone Sodium 1 gm/ (Sodium Chloride) 100 mls @ 100 mls/hr IVPB DAILY [facility] Levothyroxine Sodium (Synthroid) 88 mcg PO DAILY@0630 [facility] Last Admin: 06/08/17 06:41 Dose: 88 mcg Multivitamins/Minerals (Therapeutic-M Tab) 1 tab PO DAILY [facility] Last Admin: 06/08/17 08:53 Dose: 1 tab Pantoprazole Sodium (Protonix Ec Tab) 40 mg PO DAILY [facility] Last Admin: 06/08/17 08:52 Dose: 40 mg Physical Exam - Constitutional Appears: Well, Non-toxic, No Acute Distress - Head Exam Head Exam: ATRAUMATIC, NORMOCEPHALIC - Eye Exam Eye Exam: Normal appearance - ENT Exam ENT Exam: Mucous Membranes Moist - Respiratory Exam Respiratory Exam: Clear to Auscultation Bilateral, NORMAL BREATHING PATTERN. absent: Rales, Rhonchi, Wheezes, Respiratory Distress - Cardiovascular Exam Cardiovascular Exam: REGULAR RHYTHM, +S1, +S2 - GI/Abdominal Exam GI & Abdominal Exam: Normal Bowel Sounds, Soft. absent: Distended, Firm, Guarding, Organomegaly, Rebound, Rigid, Tenderness - Neurological Exam Neurological exam: Alert, Oriented x3 - Psychiatric Exam Psychiatric exam: Normal Affect, Normal Mood - Skin Skin Exam: Dry, Intact, Normal Color, Warm Results - Vital Signs Recent Vital Signs: Last Vital Signs Temp 97.5 F L 06/09/17 08:00 Pulse 69 06/09/17 08:00 Resp 18 06/09/17 08:00 BP 117/64 06/09/17 08:00 Pulse Ox 95 06/09/17 08:00 - Labs Result Diagrams: 06/08/17 12:25 06/08/17 05:25 Labs: Laboratory Results - last 24 hr 06/08/17 06/08/17 06/08/17 10:30 10:30 12:25 WBC 11.0 H RBC 3.63 L Hgb 9.1 L Hct 29.0 L MCV 80.1 L MCH 25.1 L MCHC 31.3 L RDW 17.4 H Plt Count 376 Ur Random Creatinine 25.6 Ur Random Sodium 94 Ur Random Potassium 33.4 Assessment & Plan - Assessment and Plan (Free Text) Assessment: Jaelyn Villalta is a 86F w/ hx of anemia, dementia who presented for fall. Pt was found to have a hgb of 9.1 upon admission, but baseline seems to be ~ 9 based on EMR for the past year. NO reports of gross GI blood loss, only +FOBT. Iron studies and ferritin reveal that etiology is likely of anemia of chronic disease vs mixed with iron def Microcytic anemia with stable hgb Anemia of chronic disease s/p fall Plan: -no acute GI intervention or study at this time -continue to monitor hgb -avoid NSAID use -can follow-up as outpt if family desire -okay for [facility] from GI standpoint -IF further assistance is needed please reconsult Will D/W Dr. Montejo <Nikia MACARIO,Miguel - Last Filed: 06/09/17 12:19> Meds - Medications Medications: Current Medications Bisoprolol Fumarate (Zebeta) 5 mg PO DAILY [facility] Last Admin: 06/09/17 10:11 Dose: 5 mg Donepezil HCl (Aricept) 5 mg PO HS [facility] Last Admin: 06/08/17 22:20 Dose: 5 mg Furosemide (Lasix) 20 mg PO DAILY [facility] Last Admin: 06/09/17 10:11 Dose: 20 mg Iron Sucrose 100 mg/ Sodium (Chloride) 105 mls @ 105 mls/hr IVPB DAILY [facility] Last Admin: 06/09/17 11:28 Dose: 105 mls/hr Ceftriaxone Sodium 1 gm/ (Sodium Chloride) 100 mls @ 100 mls/hr IVPB DAILY [facility] Last Admin: 06/09/17 10:12 Dose: 100 mls/hr Levothyroxine Sodium (Synthroid) 88 mcg PO DAILY@0630 [facility] Last Admin: 06/08/17 06:41 Dose: 88 mcg Multivitamins/Minerals (Therapeutic-M Tab) 1 tab PO DAILY [facility] Last Admin: 06/09/17 10:13 Dose: 1 tab Pantoprazole Sodium (Protonix Ec Tab) 40 mg PO DAILY [facility] Last Admin: 06/09/17 10:10 Dose: 40 mg Results - Vital Signs Recent Vital Signs: Last Vital Signs Temp 97.5 F L 06/09/17 08:00 Pulse 69 06/09/17 08:00 Resp 18 06/09/17 08:00 BP 117/64 06/09/17 10:11 Pulse Ox 95 06/09/17 08:00 - Labs Result Diagrams: 06/08/17 12:25 06/08/17 05:25 Labs: Laboratory Results - last 24 hr 06/08/17 12:25 WBC 11.0 H RBC 3.63 L Hgb 9.1 L Hct 29.0 L MCV 80.1 L MCH 25.1 L MCHC 31.3 L RDW 17.4 H Plt Count 376 Attending/Attestation - Attestation I have personally seen and examined this patient.: Yes I have fully participated in the care of the patient.: Yes I have reviewed all pertinent clinical information: Yes Notes (Text): 06/09/17 12:17 This is a 86 yr old F with history of anemia, dementia who presented for fall. Pt was found to have a hgb of 9.1 upon admission, but baseline seems to be ~ 9 based on EMR for the past year. No reports of gross GI blood loss, only +FOBT. Low sensitivity yield of one FOBt sample. Iron studies and ferritin reveal that etiology is likely of anemia of chronic disease vs mixed with iron def. No acute GI intervention or study at this time. Avoid NSAID use. information given for outpatient follow up appointment. Ok to DC to [facility]. Thank you for letting us participate in the care of your patient
[2017-06-09] MEDS: Pantoprazole 40 mg EC Tab PO SCH (10:10)
[2017-06-09] MEDS: Multivitamin With Minerals Tab PO SCH (10:13)
--- NOTE | 2017-06-09 12:15 | CP.PCM.DIS ---
Provider - Provider Date of Admission: 06/07/17 12:55 Attending physician: Rangel Dorman MD Primary care physician: Juan M Jean MD Consults: Dr. Enriqueta RITCHIE Time Spent in preparation of Discharge (in minutes): 35 Diagnosis - Discharge Diagnosis (1) Acute renal injury due to hypovolemia Status: Acute Priority: High (2) Iron deficiency anemia Status: Chronic Priority: Medium (3) Decubitus ulcer Status: Chronic Priority: Medium (4) Dementia Status: Chronic Priority: Medium (5) Fall Status: Acute Priority: Medium (6) HTN (hypertension) Status: Acute Priority: Medium (7) Hypothyroidism Status: Acute Priority: Medium (8) Peripheral edema Status: Chronic Priority: Medium Hospital Course - Lab Results Lab Results: Micro Results 06/07/17 08:34 Sputum Gram Stain - Preliminary 06/07/17 08:34 Sputum Sputum Culture - Final Klebsiella Pneumoniae Ssp Pneu Most Recent Lab Values WBC 11.0 K/uL (4.8-10.8) H 06/08/17 12:25 RBC 3.63 Mil/uL (3.80-5.20) L 06/08/17 12:25 Hgb 9.1 g/dL (12.0-16.0) L 06/08/17 12:25 Hct 29.0 % (34.0-47.0) L 06/08/17 12:25 MCV 80.1 fl (81.0-99.0) L 06/08/17 12:25 MCH 25.1 pg (27.0-31.0) L 06/08/17 12:25 MCHC 31.3 g/dL (33.0-37.0) L 06/08/17 12:25 RDW 17.4 % (11.5-14.5) H 06/08/17 12:25 Plt Count 376 K/uL (130-400) 06/08/17 12:25 MPV 6.5 fl (7.2-11.7) L 06/07/17 05:30 Neut % (Auto) 76.7 % (50.0-75.0) H 06/07/17 05:30 Lymph % (Auto) 13.3 % (20.0-40.0) L 06/07/17 05:30 Andrews % (Auto) 9.4 % (0.0-10.0) 06/07/17 05:30 Eos % (Auto) 0.3 % (0.0-4.0) 06/07/17 05:30 Baso % (Auto) 0.3 % (0.0-2.0) 06/07/17 05:30 Neut # 8.3 K/uL (1.8-7.0) H 06/07/17 05:30 Lymph # 1.4 K/uL (1.0-4.3) 06/07/17 05:30 Andrews # 1.0 K/uL (0.0-0.8) H 06/07/17 05:30 Eos # 0.0 K/uL (0.0-0.7) 06/07/17 05:30 Baso # 0.0 K/uL (0.0-0.2) 06/07/17 05:30 Neutrophils % (Manual) 79 % (42-75) H 06/06/17 12:40 Lymphocytes % (Manual) 9 % (20-50) L 06/06/17 12:40 Monocytes % (Manual) 11 % (0-10) H 06/06/17 12:40 Basophils % (Manual) 1 % (0-2) 06/06/17 12:40 Platelet Estimate Slightly increased (NORMAL) H 06/06/17 12:40 Hypochromasia (manual) Slight 06/06/17 12:40 Anisocytosis (manual) Slight 06/06/17 12:40 Microcytosis (manual) Slight 06/06/17 12:40 Retic Count 2.3 % (0.5-1.5) H 06/07/17 15:15 Sodium 140 mmol/l (132-148) 06/08/17 05:25 Potassium 3.8 MMOL/L (3.6-5.0) 06/08/17 05:25 Chloride 106 mmol/L (98-107) 06/08/17 05:25 Carbon Dioxide 28 mmol/L (22-30) 06/08/17 05:25 Anion Gap 9 (10-20) L 06/08/17 05:25 BUN 32 mg/dl (7-17) H 06/08/17 05:25 Creatinine 1.5 mg/dL (0.7-1.2) H 06/08/17 05:25 Est GFR ( Amer) 40 06/08/17 05:25 Est GFR (Non-Af Amer) 33 06/08/17 05:25 Random Glucose 105 mg/dL (65-105) 06/08/17 05:25 Calcium 8.9 mg/dL (8.4-10.2) 06/08/17 05:25 Iron 23 ug/dL (37-170) L 06/07/17 15:15 TIBC 171 ug/dL (250-450) L 06/07/17 15:15 % Saturation 13 % (20-55) L 06/07/17 15:15 Transferrin 96.08 mg/dL (206-381) L 06/07/17 15:15 Ferritin 392.0 ng/mL 06/07/17 15:15 Troponin I < 0.0120 ng/mL (0.00-0.120) 06/06/17 14:44 NT-Pro-B Natriuret Pep 4170 pg/ml (0-900) H 06/08/17 05:25 Triglycerides 166 mg/DL (0-149) H 06/07/17 05:30 Cholesterol 95 mg/dL (0-199) 06/07/17 05:30 LDL Cholesterol Direct 40 mg/dL (0-129) 06/07/17 05:30 HDL Cholesterol 20 MG/DL (30-70) L 06/07/17 05:30 Vitamin B12 775 pg/mL (239-931) 06/07/17 15:15 Folate > 20.0 ng/mL 06/07/17 15:15 TSH 3rd Generation 7.36 mIU/ML (0.46-4.68) H 06/07/17 05:30 Urine Color Yellow (YELLOW) 06/06/17 17:00 Urine Clarity Cloudy (Clear) 06/06/17 17:00 Urine pH 5.0 (5.0-8.0) 06/06/17 17:00 Ur Specific [place] 1.015 (1.003-1.030) 06/06/17 17:00 Urine Protein Negative mg/dL (NEGATIVE) 06/06/17 17:00 Urine Glucose (UA) Neg mg/dL (Normal) 06/06/17 17:00 Urine Ketones Negative mg/dL (NEGATIVE) 06/06/17 17:00 Urine Blood Negative (NEGATIVE) 06/06/17 17:00 Urine Nitrate Negative (NEGATIVE) 06/06/17 17:00 Urine Bilirubin Negative (NEGATIVE) 06/06/17 17:00 Urine Urobilinogen 0.2-1.0 mg/dL (0.2-1.0) 06/06/17 17:00 Ur Leukocyte Esterase Small [place]/uL (Negative) 06/06/17 17:00 Urine RBC (Auto) 2 /hpf (0-3) 06/06/17 17:00 Urine Microscopic WBC 18 /hpf (0-5) H 06/06/17 17:00 Ur Squamous Epith Cells 1 /hpf (0-5) 06/06/17 17:00 Urine Bacteria Rare (<OCC) 06/06/17 17:00 Ur Random Creatinine 25.6 mg/dL 06/08/17 10:30 Ur Random Sodium 94 meq/L 06/08/17 10:30 Ur Random Potassium 33.4 mmol/L 06/08/17 10:30 Stool Occult Blood Positive (NEGATIVE) H 06/07/17 20:15 - Hospital Course Hospital Course: Jaelyn Villalta is a 86F w/ a hx of anemia, hypothyroidism, dementia, and anemia of chronic disease who presented for a fall. She claims she fell forward onto her right side but did not get injured. She was subsequently placed on observation on telemetry after workup found her to be in acute renal failure related to dehydration. In addition, she was found to be anemia with a hemoglobin of approximately 9.0. A fecal occult was obtained and found to be positive. GI consultation, Dr. Anand, was called and stated that no further workup was to be done as her hemoglobin is stable and etiology of the anemia was likely of anemia with chronic disease vs mixed with iron deficiency. During the course of her stay, her renal failure improved somewhat with hydration. She was also found to have UTI with Klebsiella, which Rocephin IV was given to her and is to be continued at [facility]. Today, the patient denies any complaint. She is to be discharged to [facility] for further rehabilitation. Discharge Exam - Head Exam Head Exam: ATRAUMATIC, NORMOCEPHALIC - Additional Findings Additional findings: EXAM: Vitals stable and reviewed GEN: WDWN, alert, cooperative HEENT: NCAT, PERRL, EOMI Neck: supple, no lymphadenopathy CARDIO: +S1S2, RRR, NO M/R/G LUNG: CTAB, NO W/R/R ABD: soft, NT, ND, no masses, no HSM EXT: no edema, pedal pulses Neuro: Alert, oriented to person only. Strength equal, bilateral UE/LE Psych: normal mood, normal affect Discharge Plan - Discharge Medications Prescriptions: Ferrous Sulfate 325 mg PO BID #60 tablet - Follow Up Plan Condition: FAIR Disposition: REHAB FACILITY/REHAB UNIT Instructions: Acute Kidney Injury (DC), Hypertension (DC), Hypertension (GEN) Referrals: Juan M Jean MD [Primary Care Provider] -
[2017-06-09 12:36] VITALS: BP 112/49; PULSE 70; TEMP 98.9; O2SAT 97
== END 2017-06-09 13:45 | DRG 683 ==
LOC: SUPCPDRO 11:13 → H.ER 11:13 → H.ERHOLD 15:42 → H.TEL 19:41 → OBSVTOIN 06-07 12:55
DX: N17.8 Other acute kidney failure (principal); N39.0 Urinary tract infection, site not specified; L89.159 Pressure ulcer of sacral region, unspecified stage; E86.0 Dehydration; F03.90 Unspecified dementia, unspecified severity, without behavioral disturbance, psychotic disturbance, mood disturbance, and anxiety; B96.1 Klebsiella pneumoniae [K. pneumoniae] as the cause of diseases classified elsewhere; E86.1 Hypovolemia; D63.8 Anemia in other chronic diseases classified elsewhere; B96.20 Unspecified Escherichia coli [E. coli] as the cause of diseases classified elsewhere; D50.9 Iron deficiency anemia, unspecified; E03.9 Hypothyroidism, unspecified; R32 Unspecified urinary incontinence; I10 Essential (primary) hypertension